=== PATIENT | female | born 1950 | race Caucasian/White ===

== ENCOUNTER 2018-08-03 14:24 | Emergency (ER) | payer MEDICARE ==
[~2018-08-03] VITALS: Ht 147.3 cm; Wt 55.0 kg
[~2018-08-03 14:24] MED LIST: NORCO1 TA1 PO; TORADOL PO; ZOFRAN ODT4 MG SL
[2018-08-03] MEDS ORDERED: ATORVASTATIN CA40 MG PO (14:40)
[2018-08-03] MEDS ORDERED: EVISTA60 MG PO (14:41)
[2018-08-03] MEDS ORDERED: CITALOPRAM10 MG PO (14:42)
[2018-08-03] MEDS ORDERED: MINOCYCLINE PO (14:43)
[2018-08-03] MEDS ORDERED: PROVENTIL108 MCG/AC IN (17:13)
[2018-08-03] MEDS ORDERED: ZITHROMAX250 MG PO (17:13)
[2018-08-03 17:18] VITALS: BP 115/64
== END 2018-08-03 17:28 | disposition home or self-care (01) ==
LOC: ED 14:24
DX: J40 Bronchitis, not specified as acute or chronic (principal); E78.5 Hyperlipidemia, unspecified; F32.9 Major depressive disorder, single episode, unspecified; M81.0 Age-related osteoporosis without current pathological fracture; Z87.442 Personal history of urinary calculi

== ENCOUNTER 2018-09-03 23:02 | Emergency (ER) | payer MEDICARE ==
[~2018-09-03] VITALS: Ht 147.3 cm; Wt 54.5 kg
[~2018-09-03 23:02] MED LIST changes: +ATORVASTATIN CA40 MG PO; +CITALOPRAM10 MG PO; +EVISTA60 MG PO; +MINOCYCLINE PO; +PROVENTIL108 MCG/AC IN; +ZITHROMAX250 MG PO
[2018-09-04] MEDS ORDERED: PERCOCET 10/31 COMBO PO (00:24)
[2018-09-04 00:43] VITALS: BP 166/67
== END 2018-09-04 00:43 | disposition home or self-care (01) ==
LOC: ED 23:02
PROC: 2W3BXYZ Immobilization of Left Upper Arm using Other Device (ICD-10-PCS; principal; 2018-09-03)
DX: S42.292A Other displaced fracture of upper end of left humerus, initial encounter for closed fracture (principal); E78.5 Hyperlipidemia, unspecified; F32.9 Major depressive disorder, single episode, unspecified; W01.0XXA Fall on same level from slipping, tripping and stumbling without subsequent striking against object, initial encounter

== ENCOUNTER 2018-09-11 15:32 | Emergency (ER) | payer MEDICARE ==
[~2018-09-11] VITALS: Ht 147.3 cm; Wt 60.0 kg
[~2018-09-11 15:32] MED LIST changes: +PERCOCET 10/31 COMBO PO
[2018-09-11 17:42] LABS: IMMATURE GRANULOCYTES 0.3 % (0.0-5.0); MEAN CELL VOLUME 95.7 fL CALC (80.0-100.0); MEAN CORPUSCULAR HGB 29.8 pG CALC (26.0-32.0); MEAN CORPUSCULAR HGB CONC 31.2 g/L CALC (32.0-36.0); NEUT# 4.96 thou/uL (2.00-7.15); RED BLOOD COUNT 3.22 mill/uL (4.20-5.60); RED CELL DISTRI WIDTH 13.2 % (11.5-15.5)
[2018-09-11 17:44] LABS: HEMATOCRIT 30.8 % (37.0-47.0); HEMOGLOBIN 9.6 g/dl (12.0-16.0)
[2018-09-11 18:02] LABS: ACT PARTIAL THROMBO TIME 25.9 SECONDS (20.0-32.5); PROTHROMBIN TIME 10.3 SECONDS (9.0-12.5)
[2018-09-11 18:04] LABS: ALBUMIN 3.3 g/dL (3.2-5.0); ALKALINE PHOSPHATASE 64 u/l (38-126); ANION GAP 12 (6-22 (CALC)); BILIRUBIN, TOTAL 0.9 mg/dL (0.0-1.4); BUN 21 mg/dL (8-23); BUN/CREATININE RATIO 34 (12-20 (CALC)); CARBON DIOXIDE 29 mmol/l (22-30); CHLORIDE 105 mmol/l (95-108); CREATININE 0.6 mg/dL (0.5-1.0); GFR > 60 ML/MIN (>=60 (CALC)); GFR FOR AFR.AMER. > 60 ML/MIN (>=60 (CALC)); POTASSIUM 4.8 mmol/l (3.5-5.1); SGOT/AST 29 u/l (9-36); SODIUM 141 mmol/l (137-146); TOTAL PROTEIN 5.8 g/dL (6.3-8.2)
[2018-09-11 18:40] VITALS: BP 109/53
== END 2018-09-11 18:40 | disposition home or self-care (01) ==
LOC: ED 15:32
PROVIDERS: Emergency Medicine
DX: I80.8 Phlebitis and thrombophlebitis of other sites (principal); E78.5 Hyperlipidemia, unspecified; F32.9 Major depressive disorder, single episode, unspecified; S42.202A Unspecified fracture of upper end of left humerus, initial encounter for closed fracture; X58.XXXA Exposure to other specified factors, initial encounter; M79.89 Other specified soft tissue disorders; M79.602 Pain in left arm